=== PATIENT | male | born 1955 | race Caucasian/White ===

== ENCOUNTER 2025-05-16 08:05 | Day surgery (SDC) | payer OTHER, SELFPAY ==
--- NOTE | 2025-05-12 10:10 | EKG_ITS ---
[facility] Test Date: 2025-05-12 Pat Name: LUIS GUTIERREZ Department: Room: - Gender: Male Management Advisor: AUGUSTIN : [id number] Requested By: Mejia Ashley Order Number: [id number] Reading MD: Mejia Ashley Measurements Intervals [place] Rate: 65 P: 28 MS: 194 QRS: 29 QRSD: 95 T: 66 QT: 386 QTc: 404 Interpretive Statements SINUS RHYTHM No previous ECG available for comparison /[id number]/[email or web address]/[id number]
[2025-05-12 10:15] VITALS: BMI 28.7
[2025-05-12 11:03] LABS: Basophils # (Auto) 0.0 Thou/mm3 (0.0-0.2); Basophils % (Auto) 0 % (0-2.5); Eosinophils # (Auto) 0.4 Thou/mm3 (0.0-0.5); Eosinophils % (Auto) 7 % (0-10); Hematocrit 47.1 % (41.0-53.0); Hemoglobin 15.8 g/dL (13.5-16.0); Immature Granulocytes Auto 0.01 Thou/mm3 (0.00-0.00); Lymphocytes # (Auto) 1.4 Thou/mm3 (1.0-4.8); Lymphocytes % (Auto) 24 % (10-50); Mean Corpuscular HGB Conc 33.5 g/dl (31.0-37.0); Mean Corpuscular Hemoglobin 25.9 pg (25.0-35.0); Mean Corpuscular Volume 77 fL (80-100); Monocytes # (Auto) 0.9 Thou/mm3 (0.0-0.8); Monocytes % (Auto) 16 % (0-12); Neutrophils # (Auto) 2.9 Thou/mm3 (1.8-7.7); Neutrophils % (Auto) 52 % (37-80); Nucleated Red Blood Cell # 0.00 Thou/mm3 (0.00-0.00); Nucleated Red Blood Cell % 0 /100 WBC (0); Platelet Count 152 Thou/mm3 (140-440); RDW Standard Deviation 42.0 fL (35.1-43.9); Red Blood Count 6.10 Miln/mm3 (4.50-5.90); White Blood Count 5.6 Thou/mm3 (3.8-10.6)
[2025-05-12 11:13] LABS: INR 1.0 (0.9-1.3); Partial Thromboplastin Time 41.1 Seconds (22.0-36.0); Prothrombin Time 11.4 Seconds (9.0-12.2)
[2025-05-12 11:17] LABS: Alanine Aminotransferase 35 U/L (10-49); Albumin, Serum 4.3 gm/dL (3.4-4.8); Albumin/Globulin Ratio 1.8 (1.2-2.2); Alkaline Phosphatase 73 U/L (46-116); Anion Gap 6 (7-16); Aspartate Amino Transferase 27 U/L (0-34); BUN/Creatinine Ratio 12 Ratio (12-20); Bilirubin,Total 0.5 mg/dL (0.3-1.2); Blood Urea Nitrogen 14 mg/dL (9-23); Calcium 10.0 mg/dL (8.3-10.6); Calcium (Corrected) 10.0 mg/dL (8.5-10.1); Carbon Dioxide 30.6 mMol/L (20.0-31.0); Chloride 101 mMol/L (98-107); Creatinine (Component) 1.2 mg/dL (0.6-1.3); Estimated Creatinine Clearance 65.8 mL/min (>60); Globulin 2.4 gm/dL (2.3-3.5); Glucose 108 mg/dL (74-106); Osmolality,Calculated 277 (275-295); Potassium 4.4 mMol/L (3.4-5.1); Sodium 138 mMol/L (136-145); Total Protein 6.7 gm/dL (5.7-8.2); eGFR > 60 See Note
[2025-05-16] VITALS (10 sets, daily range): BP systolic 81–142; BP diastolic 57–99; PULSE 57–81; RESP 12–19; TEMP 36.2–36.7; O2SAT 92–98
--- NOTE | 2025-05-16 08:30 | CHAP ---
Visited with patient and gave comfort, encouragement and prayer.
[2025-05-16] MEDS: RINGERS LACTATED 1000 ML 1,000 ML 20 ML IV (08:44)
[2025-05-16] MEDS: ALBUTEROL RT 2.5 MG/3 ML NEBU INH ×2 (08:44→10:34)
--- NOTE | 2025-05-16 09:30 | CHAP ---
Visited with patient and gave comfort, encouragement and prayer.
--- NOTE | 2025-05-16 10:18 | SUR.PHASEI ---
1018: Pt. arrived with oral airway in place, vitals stable, breathing unlabored, no signs of distress, dressing to ABD CDI, no active bleed noted, report received from MD Peters and Ingrid UMANA.
--- NOTE | 2025-05-16 10:30 | PD.SUROPNT ---
Date of Procedure 05/16/25 Pre Op Diagnosis Symptomatic umbilical hernia Post Op Diagnosis Same Procedure Repair of the umbilical hernia with 1.[address] mesh Findings Patient was found to have a defect which was around and easily admitted my finger measuring 1.5 cm in diam and required a mesh Procedure Description After the patient was brought to the operating room and recurrence was given. Abdomen was prepped with ChloraPrep solution and draped in a sterile manner. Timeout was performed. Then I made a curved incision above the umbilicus in a circumareolar fashion. Using Daniela retractors I dissected out the sac and opened it which contained omentum. This was reduced and the sac was excised all the way down to the fascia. The fascial defect was ascertained and it was about 1.5 cm and it was around. I used 1.[address] mesh and used the 2-0 Prolene to anchor the Marlex straps to on each sides. Then I also placed 1 stitch on the opposite side of the Marlex mesh to anchor the mesh firmly to the anterior abdominal wall. Then the back of the umbilical skin was attached to the fascia to create a inverted appearance of the umbilicus. Subcutaneous tissue was closed with 3-0 chromic and the skin was approximated with 4-0 Monocryl after local anesthesia with half percent Marcaine. Patient tolerated the procedure well and left operating room in stable condition. Anesthesia GETA Implants 1.[address] Pathology / specimen None Estimated Blood Loss 30 Surgeon Raza Titus MD Surgical Staff Operation Date: 05/16/25 09:00 Case Staff Anesthesiologist: Nilton Peters RN First Assistant: Gracy Contreras
--- NOTE | 2025-05-16 11:25 | SUR.PHASEII ---
1125: Pt. AAOx4, vitals stable, breathing unlabored, no complaint of pain or nausea, dressing to ABD CDI, no active bleed noted, pt. tolerated sips of water well, pt. ambulated to wheelchair with steady gait and no assist, no complications. Gave discharge instructions to the pt. and his , both verbalized understanding and had no further questions. Pt. left with all personal belongings.
== END 2025-05-16 11:25 | disposition home or self-care (01) ==
PROVIDERS: PCP Student in an Organized Health Care Education/Training Program; Referring Provider Surgery; Visit Provider Surgery
PROC: (CPT 49591; principal; 2025-05-16 09:00)
DX: K42.9 Umbilical hernia without obstruction or gangrene (principal); Z01.810 Encounter for preprocedural cardiovascular examination; E66.9 Obesity, unspecified; F32.A Depression, unspecified; M19.90 Unspecified osteoarthritis, unspecified site
CPT/HCPCS: 49591; 36415; 80053; 85025; 85610; 85730; 93005; A4649; C1781; J0131; J1100; J1885; J2250; J2405; J2704; J3010; J3490; J7120